=== PATIENT | female | born 1995 | race Two or more races ===

== ENCOUNTER 2019-09-22 08:33 | Inpatient (IN) | payer MEDICAID ==
[2019-09-22 09:30] VITALS: BP 100/60
[2019-09-22] MEDS ORDERED: no medications (15:47)
[2019-09-22] MEDS ORDERED: QUEtiapine FUMARATE 100 MG TABLET PO PRN (16:00)
[2019-09-22] MEDS ORDERED: MAG HYDROX/AL HYDROX/SIMETH ES 30 ML SUSPENSION UDCUP PO PRN (16:00)
[2019-09-22] MEDS ORDERED: HydrOXYzine PAMOATE 50 MG CAPSULE PO PRN (16:00)
[2019-09-22] MEDS ORDERED: ACETAMINOPHEN 325 MG TABLET PO PRN (16:00)
[2019-09-22] MEDS ORDERED: GuaiFENesin/D-METHORPHAN [SUGAR-FREE] 200-20MG/10 ML SYRUP UDCUP PO PRN (16:00)
[2019-09-22] MEDS ORDERED: PROMETHAZINE HCL 25 MG TABLET PO PRN (16:00)
[2019-09-22] MEDS ORDERED: TUBERCULIN, PURIFIED PROTEIN DERIVATIVE 5 TU/0.1 ML SYRINGE ID ONE (16:00)
[2019-09-22] MEDS ORDERED: MAGNESIUM HYDROXIDE SUSPENSION 30 ML UDCUP PO PRN (16:00)
[2019-09-22] MEDS ORDERED: LOPERAMIDE HCL 2 MG CAPSULE PO PRN (16:00)
[2019-09-22] MEDS ORDERED: LORazepam 2 MG TABLET PO PRN (16:00)
[2019-09-22] MEDS ORDERED: INFLUENZA VIRUS VACCINE QVS 2019-20 (3YR+)/PF 60 MCG/0.5 ML SYRINGE IM ONE (17:30)
[2019-09-22] MEDS: THIAMINE HCL 100 MG TABLET PO SCH (18:17)
[2019-09-22 20:19] VITALS: BP 125/84
[2019-09-22] MEDS: ZOLPIDEM TARTRATE 10 MG TABLET PO PRN (22:51)
[2019-09-23 05:39] VITALS: BP 102/64
[2019-09-23] MEDS: THIAMINE HCL 100 MG TABLET PO SCH ×2 (08:17→16:33)
[2019-09-23] MEDS: MULTIVITAMINS WITH MINERALS, THERAPEUTIC TABLET PO SCH (08:17)
[2019-09-23] MEDS: FLUoxetine HCL 20 MG CAPSULE PO SCH (08:17)
[2019-09-23] MEDS: FOLIC ACID 1 MG TABLET PO SCH (08:17)
[2019-09-23 08:38] VITALS: BP 100/57
[2019-09-23 16:03] VITALS: BP 100/63
[2019-09-23] MEDS ORDERED: FLUO-191 PO (17:27)
[2019-09-23] MEDS: ZOLPIDEM TARTRATE 10 MG TABLET PO PRN (21:33)
[2019-09-24] VITALS: BP 103/67
[2019-09-24] MEDS: FOLIC ACID 1 MG TABLET PO SCH (08:20)
[2019-09-24] MEDS: MULTIVITAMINS WITH MINERALS, THERAPEUTIC TABLET PO SCH (08:20)
[2019-09-24] MEDS: FLUoxetine HCL 20 MG CAPSULE PO SCH (08:20)
[2019-09-24] MEDS: THIAMINE HCL 100 MG TABLET PO SCH (08:20)
[2019-09-24 08:48] VITALS: BP 123/74
== END 2019-09-24 14:23 | disposition home or self-care (01) | DRG 751 ==
LOC: B3A 09:45
PROVIDERS: ADMIT Psychiatry & Neurology Psychiatry; ATTEND Psychiatry & Neurology Psychiatry
DX: F33.2 Major depressive disorder, recurrent severe without psychotic features (principal); R45.851 Suicidal ideations; Z91.19 Patient's noncompliance with other medical treatment and regimen; D64.9 Anemia, unspecified; F41.9 Anxiety disorder, unspecified; S70.311A Abrasion, right thigh, initial encounter; Z60.9 Problem related to social environment, unspecified; X83.8XXA Intentional self-harm by other specified means, initial encounter; Y93.89 Activity, other specified; Y92.89 Other specified places as the place of occurrence of the external cause; Y99.8 Other external cause status; Z63.9 Problem related to primary support group, unspecified
CPT/HCPCS: 87081